=== PATIENT | male | born 1955 | race Caucasian/White ===

== ENCOUNTER 2019-12-20 09:58 | Outpatient (CLI) | payer OTHER, SELFPAY ==
--- NOTE | ~2019-12-20 | XR_ITS ---
EXAMINATION: XR knee RT min 4V DATE: 12/20/2019 10:39 INDICATION: Right knee pain. TECHNIQUE: 4 views of right knee were obtained. COMPARISON: None. FINDINGS: There is varus attenuation at the knee. No fracture. There is severe osteoarthritis of medi al compartment, moderate osteoarthritis of patellofemoral compartment, and mild osteoarthritis of lat eral compartment. There is a small knee joint effusion. IMPRESSION: 1. Severe right knee osteoarthritis. 2. Small right knee joint effusion. Reviewed, dictated and finalized at location A.
== END 2019-12-20 09:59 | disposition home or self-care (01) ==
PROVIDERS: PCP Family Medicine; Visit Provider Family Medicine
DX: M17.11 Unilateral primary osteoarthritis, right knee (principal); M25.461 Effusion, right knee
CPT/HCPCS: 73564

== ENCOUNTER → 2020-08-07 02:55 | Outpatient (CLI) | payer OTHER, SELFPAY ==
[2020-08-07 19:50] LABS: SARS-CoV-2 RNA PCR Negative
== END ==
PROVIDERS: PCP Family Medicine; Visit Provider Internal Medicine Gastroenterology
DX: Z01.812 Encounter for preprocedural laboratory examination (principal); Z20.822 Contact with and (suspected) exposure to COVID-19
CPT/HCPCS: C9803; U0003; U0005

== ENCOUNTER 2020-08-10 00:48 | Day surgery (SDC) | payer OTHER, SELFPAY ==
[2020-01-15 13:42] VITALS: BMI 41.8
--- NOTE | 2020-03-09 15:38 | PC.NURSE ---
Pt. called, intends to reschedule colonoscopy until he can get the COVID vaccine. Instructed pt. to call Dr. Brown's office to reschedule procedure. Elzbieta Mathur RN.
[2020-08-03 08:42] VITALS: BMI 42.5
[2020-08-10 10:21] VITALS: BP 115/81; PULSE 110; RESP 22; O2SAT 97; BMI 42.2
--- NOTE | 2020-08-10 10:24 | WPDANESEPPF ---
Anes - Initial Pre Proc Eval Procedure: Operation Date: 08/10/20 11:30 Proposed Procedures p Screening Colonoscopy - Quentin Brown DO Date/Time: 08/10/20 10:24 Surgeon: Quentin Brown DO Pre Op Diagnosis: Neoplasm Screening Patient Data Age: 65 Gender: M Height: 1.73 m Weight: 126 kg Last Vital Signs Pulse 110 H 08/10/20 10:21 Resp 22 H 08/10/20 10:21 BP 115/81 08/10/20 10:21 Pulse Ox 97 08/10/20 10:21 Allergies Allergy/AdvReac Type Severity Reaction Status Date / Time Penicillins Allergy Intermediate Rash Verified 08/10/20 10:19 bee venom protein (honey bee) Allergy Mild Swelling Verified 08/10/20 10:19 Sulfa (Sulfonamide AdvReac Intermediate Nausea and Verified 08/10/20 10:19 Antibiotics) Vomiting Home Medications Medication Instructions Recorded Confirmed Type escitalopram oxalate 10 mg tablet 10 mg PO DAILY 12/20/19 04/20/20 History risperidone 3 mg tablet 3 mg PO BID 12/20/19 04/20/20 History trihexyphenidyl 2 mg tablet 2 mg PO .qhs tablet 12/20/19 08/10/20 History venlafaxine 150 mg 150 mg PO BID cap 12/20/19 04/20/20 History capsule,extended release 24 hr Patient hx anesthesia problems: none Family hx anesthesia problems: none PMFSH Past Medical History Medical History (Updated 08/10/20 @ 09:22 by Elmer Peoples DO) BMI greater than 40 Degenerative joint disease of knee Depression Food allergy GERD (gastroesophageal reflux disease) IFG (impaired fasting glucose) Knee effusion Left knee pain Severe obstructive sleep apnea Vision changes Wears glasses Weight gain Family History Family History (Updated 01/17/20 @ 11:49 by Nohemy Rivera, RT(R)) Father Hypertension Mother Family history of diabetes mellitus in first degree relative Other Arthritis Diabetes mellitus Social History Social History Smoking status: Never smoker Second hand tobacco smoke exposure: No Alcohol intake: never Substance use: never Substance use type: does not use Living arrangements: with family Gender identity (if verbalized by the patient): Male Spiritual care concerns: No Anes - Eval Final PreProcedure Day of Procedure 08/10/20 10:24 Patient weight: morbidly obese Heart: regular rate and rhythm Lungs: clear to auscultation and normal air movement Airway: Mallampati scale class III Neurological: alert and oriented Last oral intake: >/= 8 hours ASA classification: III Emergent: no Anesthetic plan: proceed Anesthesia type and monitoring: general GIVS and standard monitoring Informed Consent: The patient's anesthetic plan and its attendant risks and benefits were discussed with the patient/family/POA. Questions were solicited and answers provided to the satisfaction of the patient/family/POA.
[2020-08-10] MEDS: LACTATED RINGERS 1,000 ML 150 ML IV CONT (10:33)
--- NOTE | 2020-08-10 10:44 | WPDGICN ---
GI Consult Note Consult date/time: 08/10/20 10:44 HPI: Reason for visit is colonoscopy. This very pleasant gentleman seen in consultation at request of the primary physician. Impression: Colon cancer and polyp screening. Depression. Obesity. Obstructive sleep apnea. Recommendation: Colonoscopy. History: Very pleasant gentleman is negative GI review of systems. He is here for screening Colonoscopy.Patient's GI review system was negative. Physical examination: General: very pleasant patient in no acute distress. HEENT: Head was normocephalic sclerae is clear mouth without masses neck was supple. Heart: Rate rhythm regular without S3 or S4. Lungs: CTA. Abdomen: Soft with no guarding or rigidity. Bowel sounds were active. Neurologic: Cranial nerves 2 through 12 intact. No focal defects. No clonus. Musculoskeletal system: Revealed no joint tenderness or swelling no muscle atrophy. Extremities: Reveal no significant edema. Skin: Warm and dry with normal turgor. Mental status: intact. Patient is alert and oriented. Review of Systems Review of Systems: All systems reviewed & are unremarkable except as noted in HPI and below PMFSH Past Medical History Medical History (Updated 08/10/20 @ 09:22 by Elmer Peoples, DO) BMI greater than 40 Degenerative joint disease of knee Depression Food allergy GERD (gastroesophageal reflux disease) IFG (impaired fasting glucose) Knee effusion Left knee pain Severe obstructive sleep apnea Vision changes Wears glasses Weight gain Family History Family History (Updated 01/17/20 @ 11:49 by Nohemy Rivera, RT(R)) Father Hypertension Mother Family history of diabetes mellitus in first degree relative Other Arthritis Diabetes mellitus Social History Social History Smoking status: Never smoker Second hand tobacco smoke exposure: No Alcohol intake: never Substance use: never Substance use type: does not use Living arrangements: with family Gender identity (if verbalized by the patient): Male Spiritual care concerns: No Meds Home Medications and Allergies Home Medications Medication Instructions Recorded Confirmed Type escitalopram oxalate 10 mg tablet 10 mg PO DAILY 12/20/19 04/20/20 History risperidone 3 mg tablet 3 mg PO BID 12/20/19 04/20/20 History trihexyphenidyl 2 mg tablet 2 mg PO .qhs tablet 12/20/19 08/10/20 History venlafaxine 150 mg 150 mg PO BID cap 12/20/19 04/20/20 History capsule,extended release 24 hr Allergies Allergy/AdvReac Type Severity Reaction Status Date / Time Penicillins Allergy Intermediate Rash Verified 08/10/20 10:19 bee venom protein (honey bee) Allergy Mild Swelling Verified 08/10/20 10:19 Sulfa (Sulfonamide AdvReac Intermediate Nausea and Verified 08/10/20 10:19 Antibiotics) Vomiting Vital Signs Vital Signs - 24 hr 08/10/20 10:21 Pulse Rate 110 H Respiratory Rate 22 H Blood Pressure 115/81 Pulse Oximetry 97
[2020-08-10 11:22] VITALS: BP 108/67; PULSE 96; RESP 27; O2SAT 97
[2020-08-10 11:32] VITALS: BP 110/69; PULSE 91; RESP 15; O2SAT 96
[2020-08-10 11:42] VITALS: BP 117/77; PULSE 91; RESP 20; O2SAT 95
== END 2020-08-10 11:55 | disposition home or self-care (01) ==
PROVIDERS: PCP Family Medicine; Visit Provider Internal Medicine Gastroenterology
PROC: 0DJD8ZZ Inspection of Lower Intestinal Tract, Via Natural or Artificial Opening Endoscopic (ICD-10-PCS; CPT 45378; principal; 2020-08-10 11:30)
DX: Z12.11 Encounter for screening for malignant neoplasm of colon (principal); D12.3 Benign neoplasm of transverse colon; K62.1 Rectal polyp; D12.8 Benign neoplasm of rectum; F32.9 Major depressive disorder, single episode, unspecified; G47.33 Obstructive sleep apnea (adult) (pediatric); K21.9 Gastro-esophageal reflux disease without esophagitis; R73.01 Impaired fasting glucose; E66.01 Morbid (severe) obesity due to excess calories; Z68.41 Body mass index [BMI] 40.0-44.9, adult
CPT/HCPCS: 45385; 88305; C9803; J2704; J7120; U0003; U0005